=== PATIENT | female | born 1960 | race Caucasian/White ===

== ENCOUNTER 2023-11-02 12:10 | Outpatient (CLI) | payer BC, SELFPAY ==
--- NOTE | 2023-11-02 13:20 | W.ANESCHARGE ---
Anesthesia Charges Start Date/Time Anesthesia Start Date: 11/02/23 Anesthesia Start Time: 13:00 Stop Date/Time Anesthesia Stop Date: 11/02/23 Anesthesia Stop Time: 13:19
--- NOTE | 2023-11-02 13:57 | W.ANESCHARGE ---
Anesthesia Charges Start Date/Time Anesthesia Start Date: 11/02/23 Anesthesia Start Time: 13:00 Stop Date/Time Anesthesia Stop Date: 11/02/23 Anesthesia Stop Time: 13:19
== END 2023-11-02 12:11 | disposition home or self-care (01) ==
PROVIDERS: PCP Nurse Practitioner Family; Visit Provider Surgery
DX: R19.8 Other specified symptoms and signs involving the digestive system and abdomen (principal); K44.9 Diaphragmatic hernia without obstruction or gangrene
CPT/HCPCS: 00731; 43239

== ENCOUNTER 2023-11-03 06:08 | Day surgery (SDC) | payer BC, SELFPAY ==
[2023-11-03] VITALS (14 sets, daily range): BP systolic 106–149; BP diastolic 57–96; PULSE 63–96; RESP 10–16; TEMP 36–36.4; O2SAT 92–98; BMI 29.4
[2023-11-03] MEDS: LACTATED RINGERS 1000 ML 1,000 ML 100 ML IV (06:10)
[2023-11-03] MEDS: SODIUM CHLORIDE 0.9 % (FLUSH) 10 ML SYRINGE IVF (06:25)
--- NOTE | 2023-11-03 07:19 | W.PM.H&PU ---
History & Physical Update History & Physical Update H&P Reviewed and patient assessed: The following changes are noted below H&P Updates: Patient underwent upper endoscopy and no gastric or duodenal ulcers were noted.
--- NOTE | 2023-11-03 07:23 | P.GSOP_ITS ---
Operative Note Date of procedure: 11/03/23 Pre-op diagnosis: 1. Biliary colic. Post-op diagnosis: Same Type of Procedure: 1. Laparoscopic cholecystectomy. Indications: 62-year-old female was seen in clinic for evaluation of epigastric and right upper quadrant pain. Patient's pain started almost a week prior to her presentation to clinic. It continued throughout the week and became so severe the patient came to the emergency room. She denies any nausea or vomiting. She also had loose bowel movements. The pain was not radiating but taking a deep breath worsened her pain. Patient has been on Omeprazole for years and was taking 4 aspirin tablets per day for arthritis. In the emergency room patient is workup showed normal WBC normal liver function tests. Her lipase was normal. A gallbladder ultrasound showed cholelithiasis, the gallbladder wall was normal in thickness and the common bile duct was 4 mm. Patient was discharged home with pain medications but continued to have pain. When she was seen in clinic her pain was still persistent. On clinical exam she had tenderness to palpation in epigastrium and right upper quadrant pain with positive Hudson sign. Given patient's clinical history and her physical exam, peptic ulcer disease versus acute cholecystitis were suspected. Patient was referred for upper endoscopy. Upper endoscopy did not show any evidence of gastric or duodenal ulcers. Patient was then recommended to proceed with laparoscopic cholecystectomy. The procedure was discussed in detail. The risks associated procedure including infection, bleeding, injury to intra-abdominal organs, and injury to the common bile duct were all discussed with the patient, and she agreed to proceed. Procedure Description: After discussing the risks and benefits of the procedure, the patient signed informed consent.? The operative site was marked and the patient was brought to the operating room and placed on the operating table in supine position.? Care was taken to pad the patient's pressure points.?? The patient was then intubated by anesthesia.?? The operative site was then prepped and draped in the usual sterile fashion.? A time-out was then performed. A 5-mm laparoscopy port was placed in the left upper quadrant guided by a 5-mm laparoscope placed into a translucent trochar.~ Passage through the layers of the abdominal wall was visualized with the laparoscope.~ A pneumoperitoneum was established. A 0-degree 5-mm laparoscope was advanced into the abdomen. The abdomen was briefly surveyed, and no adhesions were noted. A 10-mm port were placed infraumbilically and two more 5 mm ports were placed on the right under direct visualization by laparoscope. The camera was then changed to 10 mm 30- degree scope and placed into the abdomen through the 10 mm port. The left upper quadrant port entrance was examined and no injury to intra-abdominal organs was identified. The gallbladder was identified, the fundus grasped and retracted cephalad. The infundibulum was grasped and retracted laterally, exposing the peritoneum overlying the triangle of Calot. This was then divided and exposed in a blunt fashion and with hook cautery. No inflammation was noted in the layers with a gallbladder wall. Common bile duct was not identified but care was taken not to injure it. The cystic duct was clearly identified and bluntly dissected circumferentially. Cystic artery was identified and tissues around it were dissected off. The cystic artery and the cystic duct were clearly going into the gallbladder. The cystic duct was then doubly ligated with surgical clips on the patient's side and singly clipped on the gallbladder side and divided. The cystic artery was then similarly ligated with clips and divided as well. The gallbladder was dissected from the liver bed in retrograde fashion using hookcautery. Small opening was made in the gallbladder wall during the dissection. Clear green bile spilled into the abdominal cavity. This was suctioned out. No stones were spilled. The gallbladder was placed into an Endo-Catch bag and removed through the infraumbilical incision. Surgical site was examined for bleeding. No bleeding was seen in the surgical field. The fascia of the infraumbilical incision was then closed with 0-0 vicryl using Isael Itzel needle under direct visualization. Pneumoperitoneum was completely reduced after viewing removal of the trocars under direct vision. The skin was then closed with 4-0 monocryl and steristrips were applied. Instrument, sponge, and needle counts were correct at closure and at the conclusion of the case. The patient was transferred to PACU in stable condition. Findings: No acute inflammation. Anesthesia: GETA Surgeon: Meryl Sun MD Estimated blood loss (mL): 5 Specimen: Gallbladder Condition: stable Disposition: PACU
[2023-11-03] MEDS: CEFAZOLIN 1 GM inj IVP (07:37)
[2023-11-03] MEDS: BUPIVACAINE 0.25% 30 ML INJECTION (08:12)
--- NOTE | 2023-11-03 08:33 | W.ANESCHARGE ---
Anesthesia Charges Start Date/Time Anesthesia Start Date: 11/03/23 Anesthesia Start Time: 07:25 Stop Date/Time Anesthesia Stop Date: 11/03/23 Anesthesia Stop Time: 08:31
[2023-11-03] MEDS: METOCLOPRAMIDE HCL 5 MG/ML INJ 10 MG IVP (09:09)
--- NOTE | 2023-11-03 09:19 | W.ANESCHARGE ---
Anesthesia Charges Start Date/Time Anesthesia Start Date: 11/03/23 Anesthesia Start Time: 07:25 Stop Date/Time Anesthesia Stop Date: 11/03/23 Anesthesia Stop Time: 08:31
== END 2023-11-03 10:20 | disposition home or self-care (01) ==
PROVIDERS: PCP Nurse Practitioner Family; Visit Provider Surgery
PROC: 0FT44ZZ Resection of Gallbladder, Percutaneous Endoscopic Approach (ICD-10-PCS; CPT 47562; principal; 2023-11-03 07:30)
DX: K80.20 Calculus of gallbladder without cholecystitis without obstruction (principal); R10.11 Right upper quadrant pain
CPT/HCPCS: 47562; 00790; 88304; 88305; J0665; J0690; J1100; J1170; J2405; J2704; J2710; J2765; J3010; J7120